=== PATIENT | male | born 1995 | race Hispanic/Latino ===

== ENCOUNTER 2023-05-03 06:04 | Emergency (ER) | payer OTHER ==
[~2023-05-03] VITALS: Ht 167.6 cm; Wt 93.0 kg
[2023-05-03] MEDS ORDERED: IBUPROFEN 800 MG TAB PO ONE (06:30)
[2023-05-03] MEDS ORDERED: LIDOCAINE HCL 1% 20 ML VIAL INJ SCH (06:30)
[2023-05-03] MEDS ORDERED: ACETAMINOPHEN 500 MG TABLET PO ONE (06:30)
[2023-05-03] MEDS: TETANUS/DIPHTHERIA TOXOID [ADULT] 0.5 ML VIAL IM ONE ×2 (06:43→09:32)
[2023-05-03] MEDS ORDERED: IBUP-2070 PO (08:36)
[2023-05-03] MEDS ORDERED: CEPH500B PO (08:36)
[2023-05-03] MEDS ORDERED: BACITRACIN 1 EACH PACKET TP ONE (09:06)
[2023-05-03 10:08] VITALS: BP 138/82
== END 2023-05-03 10:07 | disposition home or self-care (01) ==
LOC: EDH 06:04
DX: S61.412A Laceration without foreign body of left hand, initial encounter (principal); X58.XXXA Exposure to other specified factors, initial encounter; Y93.89 Activity, other specified; Y92.89 Other specified places as the place of occurrence of the external cause; Y99.8 Other external cause status; Z79.899 Other long term (current) drug therapy
CPT/HCPCS: 12002; 73130; 90471; 90714